=== PATIENT | female | born 1970 | race Caucasian/White ===

== ENCOUNTER 2022-01-29 10:03 | Observation (INO) ==
--- NOTE | 2022-01-23 13:05 | Anesthesiology Consultation ---
Date of Service January 23, 2022 Assessment & Plan (1) Encounter for pre-operative examination: - COVID screening: Per assessment on 01/23: No known COVID-19 positive contacts or current COVID-19 related symptoms. Travel screen negative. Patient vaccinated. At surgeon discretion if preop Covid testing being done. - Check test AM DOS Chart Review Chart Review: Acceptable Risk for Surgery and Patient NOT seen in Pre Admission Testing History Surgery Operation Date: 01/29/22 11:40 Proposed Procedures p Panniculectomy - Jo Nye MD Height/Weight Height: 5 ft 7 in Weight: 83.461 kg Allergies Allergy/AdvReac Type Severity Reaction Status Date / Time latex Allergy Rash Verified 01/23/22 10:54 No Known Drug Allergies Allergy Verified 01/23/22 10:34 Medications Home Medications Medication Instructions Recorded Confirmed Last Taken tirzepatide 15 mg/0.5 mL 15 mg subcut .COMPLEX 01/16/22 01/23/22 Unknown subcutaneous pen injector (Kiesha) Past Medical History Medical History (Updated 01/23/22 @ 13:03 by Halima Rebollar) Anxiety GERD (gastroesophageal reflux disease) diet controlled History of IBS Past Family History Family History (Updated 01/23/22 @ 10:39 by Moraima Hector) Other No family history of adverse response to anesthesia Past Surgical History Surgical History (Updated 01/23/22 @ 10:39 by Moraima Hector) History of breast biopsy History of History of colonoscopy History of endometrial ablation History of esophagogastroduodenoscopy (EGD) History of wisdom tooth extraction Social History Smoking Status: Never smoker Do You Dip or Chew Tobacco: No Hx Alcohol Use: Yes alcohol intake frequency: holidays/special occasions only Hx Substance Use: No substance use type: does not use Lab Results Anesthesia Preop Results Results Anesthesia Widget: WBC 4.50 K/ul (4.8-10.8) L 01/16/22 Hgb 13.5 g/dl (12.0-16.0) 01/16/22 Hct 38.5 % (34.1-44.9) 01/16/22 Plt 145 K/uL (130-400) 01/16/22 Na 141 mmol/L (136-145) 01/16/22 K 3.9 mmol/L (3.5-5.1) 01/16/22 Cl 106 mmol/L (98-107) 01/16/22 CO2 31 mmol/L (21-32) 01/16/22 BUN 17 mg/dl (6-23) 01/16/22 Creat 0.98 mg/dl (0.6-1.2) 01/16/22 Glucose Level 60 mg/dl (70-99(Fasting)) L 01/16/22 PT 11.0 Seconds (9.0-12.0) 01/16/22 INR 1.0 (0.9-1.1) 01/16/22 Testing Echocardiogram Date: 05/28/18 EF 55%. No significant valvular disease. Stress Test Date: 05/28/18 Stress EKG negative for myocardial ischemia at 99% MPHR. 10.1 METS. No evidence of myocardial ischemia or infarction on nuclear imaging.
[~2022-01-29 10:03] MED LIST: DEXAMETHASONE SOD INJ 4 MG/ML VIAL ONE; GLYCOPYRROLATE 0.2 MG/ML VIAL ONE; LIDOCAINE 2% MPF LOCAL 5 ML VIAL INFIL ONE; LR 15ML/HR IV SCH; MIDAZOLAM HCL 1 MG/ML 2ML VIAL ONE; NEOSTIGMINE METHYLSULFATE 1 MG/ML 10ML VIAL ONE; ONDANSETRON INJ 2 MG/ML 2 ML VIAL ONE; PROPOFOL IV EMULSION 10 MG/ML 20 ML VIAL IV ONE; ROCURONIUM BROMIDE 10 MG/ML 5 ML VIAL IV ONE; ceFAZolin 2000MG 2,000 MG/15 ML SYR IV SCH; fentaNYL citrate 100 MCG/2 ML VIAL ONE
[2022-01-29] MEDS ORDERED: MoRPHine SULFATE 10 MG/ML CARP/VIAL IV PRN (10:47)
[2022-01-29] MEDS ORDERED: ePHEDrine sulfate 50 MG/ML AMP IV PRN (10:47)
[2022-01-29] MEDS ORDERED: fentaNYL citrate 100 MCG/2 ML VIAL IV PRN (10:47)
[2022-01-29] MEDS ORDERED: ONDANSETRON INJ 2 MG/ML 2 ML VIAL IV PRN ×2 (10:47→15:53)
[2022-01-29] MEDS ORDERED: MEPERIDINE HCL 25 MG/ML CARP/VIAL IV PRN (10:47)
[2022-01-29] MEDS ORDERED: ATROPINE SULFATE 0.1 MG/ML 10ML SYR IV PRN (10:47)
--- NOTE | 2022-01-29 10:53 | History & Physical Bridge Note ---
Date of Service January 29, 2022 History & Physical Bridge Note I have examined the patient, reviewed the History & Physical and in the interval since the performance of the History & Physical I have noted the following changes of clinical significance: no changes noted
[2022-01-29] MEDS ORDERED: ACETAMINOPHEN 1000 MG/100 ML IV IV ONE (11:11)
[2022-01-29] MEDS ORDERED: BUPIVACAINE 0.25% 30 ML VIAL ONE (11:29)
[2022-01-29] MEDS ORDERED: PHENYLEPHRINE HCL 10 MG/ML VIAL ONE (12:10)
[2022-01-29] MEDS ORDERED: ePHEDrine sulfate 50 MG/ML SYR ONE (12:10)
[2022-01-29] MEDS ORDERED: HYDROmorphone INJ 1 MG/ML SYRINGE ONE (12:37)
[2022-01-29] MEDS ORDERED: ONDANSETRON INJ 2 MG/ML 2 ML VIAL ONE (13:23)
[2022-01-29] MEDS ORDERED: GLYCOPYRROLATE 0.2 MG/ML VIAL ONE (13:23)
--- NOTE | 2022-01-29 14:11 | Post Operative Brief Note ---
PG Immediate Post Op with CF Date of Surgery January 29, 2022 Pre & Post Diagnosis Operation Date: 01/29/22 11:40 Pre-Op Diagnosis: Abdominal Pannus Post-Op Diagnosis: Abdominal Pannus I identified the patient and participated in the time-out.: Yes Procedure Operation Date: 01/29/22 11:40 Actual Procedures p Panniculectomy - Jo yNe MD Surgeon Jo Nye MD Driver Recruiter Char Sands PA-C Estimated Blood Loss 50 Findings Consistent with Post-Op Diagnosis Specimens Specimen Description: A. Abdominal Pannus Drains Sergio Drain (15fr x 2)
--- NOTE | 2022-01-29 14:18 | Operative Report ---
PG Post Operative Report Pre & Post Diagnosis Operation Date: 01/29/22 11:40 Pre-Op Diagnosis: Abdominal Pannus Post-Op Diagnosis: Abdominal Pannus I identified the patient and participated in the time-out.: Yes Procedure Operation Date: 01/29/22 11:40 Actual Procedures p Panniculectomy - Jo Nye MD Surgeon Jo Nye MD Bond Trader [employer] Sands PA-C Estimated Blood Loss 50 Findings Consistent with Post-Op Diagnosis Specimens abdominal pannus Drains [place] x2 Anesthesia Type General Complications none Indications s/p weight loss, overhanging abdominal pannus and intertrigo Description of Procedure Risks, benefits, and alternatives of the procedure were explained to the patient who agreed and signed consent. She was identified and marked in the preoperative holding area. She was brought to the operating room where she was positioned supine and placed under general anesthesia without incident. Head catheter was placed. Surgical site was prepped and draped sterilely. A time-out procedure was performed. I reassessed my markings which included a lower horizontal abdominal incision with the midportion 7 cm above the vulvar commissure just inferior to her Pfannenstiel scar. Incision was marked bilaterally to the ASIS. I began by injecting 1% lidocaine with epinephrine along the planned incision. The lower abdominal incision was made using a 15-blade scalpel to incise epidermis and superficial dermis followed by electrocautery to incise deep dermis, subcutaneous fat, Noemy's fascia down to the abdominal wall. Care was taken to bevel superiorly in order to avoid encountering the inguinal region. Electrocautery was used to elevate the anterior abdominal skin flap ligating the perforating vessels with 3-0 Vicryl ties and electrocautery. Dissection was carried up to the level of the umbilicus in the midline. At this point, a 15-blade scalpel was used to circumscribe the umbilicus. A vertical midline incision was then made from the incision to the umbilicus and divided in the midline using electrocautery. The umbilicus was then dissected out using electrocautery down to abdominal wall. The umbilical stalk appeared viable throughout the procedure. In order to facilitate inset of the umbilicus, dissection was continued for about an additional 7 cm superior to the umbilicus just in the midline. Just above the umbilicus, a small approximately 5 mm fascial defect was noted and a single 0 Ethibond figure of 8 suture was placed. At this point, the bed was flexed and the mid portion of the superior skin flap was inset above the mons pubis using 2-0 Vicryl suture. Skin flaps were marked for excision. A 15-blade scalpel was used to make these incisions and the incision was deepened through dermis, subcutaneous fat, Noemy's fat using electrocautery. Subscarpal fat was resected directly. A total of 10 mL of 0.25% Marcaine plain were injected into the fascia as well as along the incisions. A 15 Citizen [place] Sergio drains were placed in the wound bed and brought out through a separate stab incision in the mons pubis. The drains were sutured into place using 3-0 nylon. The umbilicus was brought out through an inverted triangular incision in the abdominal wall. Due to the depth of the pole of the umbilicus, this was shortened to facilitate closure. This was performed using a 15-blade scalpel. Due to some generalized oozing despite cautery (without active bleeding vessels), Tisseel was sprayed into the wound bed to prevent hematoma or seroma. Wound closure was then begun lateral to medial using 2-0 Vicryl Noemy's fascia, 2-0 Vicryl deep dermal sutures, 2-0 PDO running superficial Quill suture, 3-0 Monocryl running subcuticular suture. Umbilicus was brought out through the inverted triangle incision and was sutured into place using 4-0 chromic half buried horizontal mattress sutures. The umbilicus was dressed using Xeroform and the incision was dressed using Dermabond Prineo followed by dry dressings and an abdominal binder. The procedure was tolerated well. The patient was awakened and transferred to recovery in satisfactory condition. Char Sands was present and scrubbed throughout the entire procedure and was instrumental in providing retraction of the pannus and assisting in simultaneous wound closure. I attest to the content of the Intraoperative Record and any orders documented therein. Any exceptions are noted below.
[2022-01-29] MEDS ORDERED: LIDOCAINE 1%/EPINEPHRINE 1:100,000 50 ML VIAL INFIL ONE (14:37)
[2022-01-29] MEDS ORDERED: TISSEEL FIBRIN SEALANT 4ML TOP ONE (14:38)
--- NOTE | 2022-01-29 15:08 | Anesthesiology Progress Note ---
Date of Service January 29, 2022 Anesthesia Post Procedure Vital Signs Vital Signs: Temp Pulse Pulse Resp BP Pulse Ox O2 Del Method 01/29/22 15:00 103 H 24 94/67 L 97 Room Air 01/29/22 14:50 94 H 18 113/69 97 Room Air 01/29/22 14:40 103 H 16 108/70 100 Oxymask 01/29/22 14:30 106 H 10 L 101/68 98 Oxymask 01/29/22 14:21 36.5 C 120 H 16 111/67 98 Oxymask 01/29/22 10:36 36.9 C 94 H 18 112/73 100 Room Air O2 Flow Rate 01/29/22 15:00 01/29/22 14:50 01/29/22 14:40 3 01/29/22 14:30 5 01/29/22 14:21 5 01/29/22 10:36 Pain Intensity Abdomen: Pain Intensity: 3 Transfer of Care Handoff Completed per policy Notes Mental Status: alert / awake / arousable Patient Amnestic to Procedure: Yes Nausea / Vomiting: adequately controlled Pain: adequately controlled Airway Patency, RR, SpO2: stable & adequate BP & HR: stable & adequate Hydration State: stable & adequate Anesthetic Complications: no major complications apparent and Pt Satisfied with anesthetic care
--- NOTE | 2022-01-29 15:46 | Surgery Progress Note ---
Date of Service January 29, 2022 Assessment & Plan (1) S/P panniculectomy: Plan: Doing well. Head out in the AM. Anticipate d/c home tomorrow. Subjective Resting comfortably in PACU. Pain well controlled. Physical Exam Physical Exam: binder in place. drains with scant bloody output Results & Data ([facility]) Vital Signs (Past 12 Hours) Vital Signs Temp Pulse Pulse Resp BP Pulse Ox O2 Del Method 01/29/22 15:40 86 19 97/66 L 93 Room Air 01/29/22 15:30 82 14 95/65 L 93 Room Air 01/29/22 15:20 80 20 97/63 L 92 Room Air 01/29/22 15:10 36.4 C L 88 17 104/66 98 Room Air 01/29/22 15:00 103 H 24 94/67 L 97 Room Air 01/29/22 14:50 94 H 18 113/69 97 Room Air 01/29/22 14:40 103 H 16 108/70 100 Oxymask 01/29/22 14:30 106 H 10 L 101/68 98 Oxymask 01/29/22 14:21 36.5 C 120 H 16 111/67 98 Oxymask 01/29/22 10:36 36.9 C 94 H 18 112/73 100 Room Air O2 Flow Rate 01/29/22 15:40 01/29/22 15:30 01/29/22 15:20 01/29/22 15:10 01/29/22 15:00 01/29/22 14:50 01/29/22 14:40 3 01/29/22 14:30 5 01/29/22 14:21 5 01/29/22 10:36 PG Care Time/CCT Total # of Minutes Spent Total Time Spent with Patient: Total time spent is greater than 50% in coordination of care (as documented) at patient's floor/unit and/or counseling patient: Coding Level of Care Code None Diagnoses S/P panniculectomy Z98.890
[2022-01-29] MEDS ORDERED: diphenhydrAMINE 50 MG/ML VIAL IV PRN (15:53)
[2022-01-29] MEDS ORDERED: diphenhydrAMINE Capsule 25 MG CAP PO PRN (15:53)
[2022-01-29] MEDS ORDERED: oxyCODONE/ACETAMINOPHEN 5mg/325mg TAB PO PRN (15:53)
[2022-01-29] MEDS ORDERED: ACETAMINOPHEN 325 MG TAB PO PRN (15:53)
[2022-01-29] MEDS ORDERED: PROMETHAZINE HCL 12.5 MG in SODIUM CHLORIDE 0.9% 50 ML IV PRN (15:53)
[2022-01-29] MEDS ORDERED: LORazepam 0.5 MG TAB PO PRN (15:53)
[2022-01-29] MEDS ORDERED: MoRPHine SULFATE 4 MG/ML 1 ML CARP\\VIAL IV PRN (15:53)
[2022-01-29] MEDS ORDERED: MoRPHine SULFATE 2 MG/ML CARP IV PRN (15:53)
[2022-01-29] MEDS: D5W AND 1/2NSS 1,000 ML IV SCH (16:48)
[2022-01-29] MEDS: ceFAZolin 2000MG 2,000 MG/15 ML SYR IV SCH (17:01)
[2022-01-29] MEDS: oxyCODONE/ACETAMINOPHEN 5mg/325mg TAB PO PRN (20:43)
[2022-01-30] MEDS: ceFAZolin 2000MG 2,000 MG/15 ML SYR IV SCH (00:25)
[2022-01-30] MEDS: oxyCODONE/ACETAMINOPHEN 5mg/325mg TAB PO PRN ×2 (02:49→09:04)
[2022-01-30] MEDS: D5W AND 1/2NSS 1,000 ML IV SCH (05:46)
--- NOTE | 2022-01-30 08:13 | Surgery Progress Note ---
Date of Service January 30, 2022 Assessment & Plan (1) S/P panniculectomy: Plan: Doing well, D/C home this AM, office follow-up tomorrow. Post-op activity restrictions were reviewed. Admission and Anticipated Discharge Date Admission Date: January 29, 2022 Shree Juarez is resting comfortably in bed. She has ambulated in the hallway. she has successfully voided after her Head was removed. Her pain is controlled. Physical Exam Physical Exam: drains is bloody and sang output. abd binder in place. minimal saturation on gauze dressings Results & Data ([facility]) Vital Signs (Past 12 Hours) Vital Signs Temp Pulse Resp BP Pulse Ox O2 Del Method 01/30/22 08:00 36.9 C 86 18 106/73 99 Room Air 01/30/22 04:00 36.7 C 75 18 115/74 99 Room Air 01/30/22 00:23 36.8 C 88 18 110/99 99 Room Air 01/29/22 20:20 36.7 C 91 H 18 119/83 98 Room Air PG Care Time/CCT Total # of Minutes Spent Total Time Spent with Patient: Total time spent is greater than 50% in coordination of care (as documented) at patient's floor/unit and/or counseling patient: Coding Level of Care Code None Diagnoses S/P panniculectomy Z98.890
[2022-01-30] MEDS ORDERED: MULTIVITAMIN TAB PO SCH (09:00)
--- NOTE | 2022-01-31 09:56 | Discharge Summary ---
Date of Service January 31, 2022 Admission HPI Per Admitting Provider History of abdominal pannus. See admission H&P. Admission Exam Per Admitting Provider large abdominal pannus Principal Diagnosis Abdominal pannus Discharge Exam VSS. drains is bloody and sang output. abd binder in place. minimal saturation on gauze dressings Discharge Data Allergies Allergy/AdvReac Type Severity Reaction Status Date / Time latex Allergy Rash Verified 01/29/22 10:24 No Known Drug Allergies Allergy Verified 01/29/22 10:24 Procedures Performed Operation Date: 01/29/22 11:40 Actual Procedures p Panniculectomy - Jo Nye MD Hospital Course (1) S/P panniculectomy: Patient presented to [facility] with history of abdominal pannus. She was taken to the OR and underwent panniculectomy. There were no intraoperative complications. She was taken to recovery and transferred to med/surg for observation. On POD#1, she was feeling well. She was tolerating a regular diet and ambulating. She was able to void after catheter was removed. On exam, her vitals were stable. Her incisions were CDI. Her drains had appropriate output. She was discharged home with instructions to follow-up in the office in one day. Total Time Total Time Spent Total Time Spent (In Minutes): 15 Total Time Includes: Examination of the Patient, Discharge Planning, Medication Reconciliation and Communication With Other Providers Discharge Plan Discharge Items Patient Disposition: Home - Self-Care Reason For Visit: Abdominal Pannus Discharge Diagnosis: s/p panniculectomy Activity: As commented below Non-emergency contact: Surgeon Call non-emergency contact if: you have any medication questions, your pain is not controlled, you have a fever, your wound has increased redness and your wound has increased drainage Follow-up/Referrals: Jo Nye MD [Physician] - 01/31/22 10:00 am (FOLLOW UP APPT WITH SKYLER VALENTINE PA-C) Kelly Mujica DO [Primary Care Provider] - Diet: Regular Addtl Attending Provider Instructions: ACTIVITY RECOMMENDATIONS: __Normal activities _x_No bending, lifting or straining. Do not stand or lay flat until you find it easily comfortable. __No driving __Driving allowed when you are off pain medications _x_Walking permitted __You should have help at home for ___ days DRESSINGS: __No dressings required _x_Keep dressings dry/in place until first office visit __Remove dressings ___ and leave dressings off __Apply ice ___ days __Remove dressings and reapply garment __Apply antibiotic ointment (Bacitracin, Neosporin, etc) to wounds 3-4 times/day for 10 days BATHING: _x_Keep dressings dry _x_Sponge bathing permitted away from surgical area. __Showering permitted _x_No swimming, hot tubs or soaking in a tub MEDICATIONS: Resume previous medications unless instructed otherwise by your surgeon. _x_Do not use aspirin, Motrin, Advil or Ibuprofen as these may promote bleeding. Please use Tylenol. _x_Prescription(s) provided: pain medication was provided at your last office visit. OTHER INSTRUCTIONS: _x_Record drain output 2-3 times per day. Strip the drains at least once daily. SPECIAL CARE INSTRUCTIONS: * It is normal to have a mild fever after surgery. If your temperature is higher than 101.5 degrees F, please call the office at [phone]. * Constipation is a typical side effect of pain medication. An [id number] stool softener will help relieve this. * Leaking around surgical drains may occur and should not cause concern. Sometimes these drains become clogged. If this happens, remove the bulb and milk the clot out of the tube, then replace the bulb. * Drainage from wounds after liposuction is normal and should be expected. Garments will become soiled. You should protect furniture and bedding. This drainage should mostly subside within 2-3 days. Leave garments in place unless instructed to remove them. * If you have unusual drainage from a wound or are concerned you have an infection or have any questions or concerns, please call the office at [phone]. FOLLOW UP VISIT: If not already scheduled, please call the office, , when you return home after surgery to schedule an appointment to be seen in _1__ days. Pending Studies at Discharge: Yes Stand-Alone Forms: [facility], Smoking Cessation Medications and DC Order Prescriptions: Continued Mounjaro 15 mg/0.5 mL pen injector 15 mg subcut .COMPLEX Rx Instructions: 15 mg subcutaneously ONCE WEEKLY; Discharge Orders: Discharge Order (Routine); Ordered 01/30/22 Ordered By: Char Sands Admission Data Admit Date/Time: 01/29/22 14:28 Attending Provider: Jo Nye Admit Provider: Jo Nye Primary Care Provider: Kelly Mujica Other Interventions: Discharge Summary Assessment (RN) Last Done: 01/30/22 10:07 Coding Level of Care Code 43381 OBS Care - Discharge Diagnoses S/P panniculectomy Z98.890
== END 2022-01-30 10:41 | disposition home or self-care (01) ==
LOC: ASU 10:03 → 3W 10:03